=== PATIENT | male | born 1950 | race American Indian/Alaskan Native ===

== ENCOUNTER 2017-05-16 09:24 | Emergency (ER) | payer OTHER ==
[2017-05-16 09:30] VITALS: BP 158/89
--- NOTE | 2017-05-16 10:09 | Emergency Department Report ---
- General Chief Complaint: Upper Respiratory Infection Stated Complaint: COLD Source: patient Mode of arrival: Ambulatory Limitations: No Limitations - History of Present Illness Initial Comments: 67-year-old -[place] male who appears to be cachectic comes in for cough and congestion since Thursday. Patient reports he has been taking over- the-counter NyQuil without much relief. Patient also reports that he's had unintentional weight loss from 157 233 pounds in approximately last 11 months. Patient reports that he recently had stents placed in his chest June 2016. Has any fever no chills no nausea no vomiting. MD Complaint: nasal congestion -: days(s) (3) Severity: mild Severity scale (0 -10): 0 Improves With: nothing Worsens With: nothing Associated Symptoms: denies other symptoms - Related Data Previous Rx's Medication Instructions Recorded Last Taken Type ALBUTEROL Inhaler [ProAir HFA 2 puff IH QID PRN 30 Days #1 05/16/17 Unknown Rx Inhaler] inhalation Benzonatate [Tessalon Perle] 100 mg PO BID #20 capsule 05/16/17 Unknown Rx Allergies Allergy/AdvReac Type Severity Reaction Status Date / Time No Known Allergies Allergy Unverified 05/16/17 09:27 ED Review of Systems ROS: Stated complaint: COLD Other details as noted in HPI Constitutional: denies: chills, fever Eyes: denies: eye pain, eye discharge, vision change ENT: denies: ear pain, throat pain Respiratory: cough. denies: shortness of breath, SOB with exertion Cardiovascular: denies: chest pain, palpitations Endocrine: no symptoms reported Gastrointestinal: denies: abdominal pain, nausea, diarrhea Genitourinary: denies: urgency, dysuria Skin: denies: rash, lesions Neurological: denies: headache, weakness, paresthesias Psychiatric: denies: anxiety, depression Hematological/Lymphatic: denies: easy bleeding, easy bruising ED Past Medical Hx - Past Medical History Hx Hypertension: Yes Additional medical history: HIGH CHOLESTROL - Surgical History Hx Coronary Stent: Yes - Social History Smoking Status: Never Smoker Substance Use Type: Alcohol - Medications Home Medications: Home Medications Medication Instructions Recorded Confirmed Last Taken Type ALBUTEROL Inhaler [ProAir HFA 2 puff IH QID PRN 30 Days #1 05/16/17 Unknown Rx Inhaler] inhalation Benzonatate [Tessalon Perle] 100 mg PO BID #20 capsule 05/16/17 Unknown Rx ED Physical Exam - General Limitations: No Limitations General appearance: alert, in no apparent distress, cachectic - Eye Eye exam: Present: other (arcus senile) - Expanded ENT Exam Expanded TM/Canal exam: Cerumen Impaction: Right TM, Left TM Mouth exam: Present: normal external inspection Teeth exam: Present: normal inspection Throat exam: Positive: normal inspection - Neck Neck exam: Present: normal inspection - Respiratory Respiratory exam: Present: rhonchi - Cardiovascular Cardiovascular Exam: Present: regular rate, normal rhythm. Absent: systolic murmur, diastolic murmur, rubs, gallop - GI/Abdominal GI/Abdominal exam: Present: soft, normal bowel sounds - Rectal Rectal exam: Present: deferred - Extremities Exam Extremities exam: Present: normal inspection - Neurological Exam Neurological exam: Present: alert, oriented X3 - Psychiatric Psychiatric exam: Present: normal affect, normal mood - Skin Skin exam: Present: warm, dry, intact, normal color. Absent: rash ED Course Vital Signs 05/16/17 09:27 Temperature 98.6 F Pulse Rate 70 Respiratory 18 Rate Blood Pressure 158/89 O2 Sat by Pulse 100 Oximetry ED Medical Decision Making - Radiology Data Radiology results: report reviewed, image reviewed FINDINGS: Normal heart and pulmonary vasculature. Lungs are hyperexpanded and hyperlucent. No airspace disease or pleural effusion.The bones and soft tissues are unremarkable. IMPRESSION: COPD.No CHF or pneumonia. Transcribed By: REF Dictated By: ROSAURA HYATT MD Electronically Authenticated By: ROSAURA HYATT MD Signed Date/Time: 05/16/17 1047 - Medical Decision Making Patient has been evaluated by this provider fast track. Patient had chest x- ray which shows COPD no pneumonia or CHF. Will discharge patient on Tessalon Perles and albuterol inhaler for cough. Recommended patient to follow up with his primary care provider to discuss about long-term COPD medication. Patient verbalized understanding. Critical care attestation.: If time is entered above; I have spent that time in minutes in the direct care of this critically ill patient, excluding procedure time. ED Disposition Clinical Impression: Cough COPD (chronic obstructive pulmonary disease) Qualifiers: COPD type: unspecified COPD Qualified Code(s): J44.9 - Chronic obstructive pulmonary disease, unspecified Disposition: DC-01 TO HOME OR SELFCARE Is pt being admited?: No Does the pt Need Aspirin: No Condition: Stable Instructions: Chronic Obstructive Pulmonary Disease (ED) Additional Instructions: Patient's been evaluated by this provider fast track. Chest x-ray was ordered and completed which showed no pneumonia and no CHF only shows COPD. Discussed the patient we'll discharge him on Tessalon Perles for cough as well as albuterol inhaler. Also discussed the patient is to follow with his primary care provider for long-term COPD management. Patient had family verbalized understanding Prescriptions: ALBUTEROL Inhaler [ProAir HFA Inhaler] 2 puff IH QID PRN 30 Days #1 inhalation PRN Reason: Shortness Of Breath Benzonatate [Tessalon Perle] 100 mg PO BID #20 capsule Referrals: PRIMARY CARE, [Primary Care Provider] - 3-5 Days
--- NOTE | 2017-05-16 10:52 | XRay Report ---
XRAY CHEST TWO VIEWS: 05/16/17 09:24:00 CLINICAL: Cough. COMPARISON: None FINDINGS: Normal heart and pulmonary vasculature. Lungs are hyperexpanded and hyperlucent. No airspace disease or pleural effusion.The bones and soft tissues are unremarkable. IMPRESSION: COPD.No CHF or pneumonia.
== END 2017-05-16 11:30 | disposition home or self-care (01) ==
LOC: ED 09:24
DX: J44.9 Chronic obstructive pulmonary disease, unspecified (principal); I10 Essential (primary) hypertension; E78.5 Hyperlipidemia, unspecified
CPT/HCPCS: 71020; 99283